=== PATIENT | female | born 1965 | race Caucasian/White ===

== ENCOUNTER 2021-10-21 15:28 | Emergency (ER) | payer OTHER, SELFPAY ==
[2021-10-21 15:41] VITALS: BP 122/80; PULSE 70; RESP 18; TEMP 36.8; O2SAT 98
--- NOTE | 2021-10-21 16:12 | ED.GENADULT ---
HPI - General Adult General Chief complaint: Ear Stated complaint: bilateral ear pain History of Present Illness HPI narrative: Mrs. Elizalde is a pleasant 56 y/o female. PMHx Non-contributory. Presents to [facility] today with acute complaints of bilateral ear pain, RT > burdensome than LT, and ongoing for now a total of 3 weeks. She reports to have been swimming a few weeks back, prior to manifestation onset. Now with worsening pain, and subtherapeutic reliefs to home OTC remedies. No fever. No WHITE, congestion. No rash, lesions. No severe pain, bleeding, or hearing deficits. No falls or direct traumas. Denies additional acute HENT or URI concerns. Related Data Allergies Allergy/AdvReac Type Severity Reaction Status Date / Time No Known Allergies Allergy Mild Verified 10/21/21 15:54 Review of Systems Review of Systems: CONSTITUTIONAL: Denies fever, chills, sweats. EYES: Denies visual changes, redness, discharge. ENT: Denies rhinorrhea, congestion, sore throat + Bilateral otalgia. CARDIOVASCULAR: Denies chest pain, palpitations, edema. RESPIRATORY: Denies dyspnea, wheezing, cough GASTROINTESTINAL: Denies abdominal pain, nausea, vomiting, diarrhea. GENITOURINARY: Denies dysuria, hematuria, abnormal discharge SKIN: Denies rash or itching. MUSCULOSKELETAL: Denies acute back pain, joint pain, or myalgia. NEUROLOGIC: Denies numbness, or focal weakness. PSYCHIATRIC: Denies anxiety or depression. Exam Narrative: GENERAL: This is a well-nourished, well-developed adult, in no apparent distress. HEAD: normocephalic. EYES: PERRL. EARS: External ears normal, RT auditory canal is erythematous, positive tragus maneuver. There is yellow discharge to canal. No FB. No bleeding. TM is erythematous/bulging. No vesicular lesions or signs of Camilo Randall Sx. LT side canal is mildly erythematous, otherwise normal Internal/external PE. No hearing compromise. NOSE: External nose normal. THROAT: Mucous membranes moist, posterior pharynx clear. No exudates. NECK: Neck supple, non-tender without lymphadenopathy, masses or thyromegaly. CARDIOVASCULAR: Regular rate and rhythm. RESPIRATORY: Clear to auscultation. GASTROINTESTINAL: Abdomen soft. SKIN: warm, intact with no suspicious lesions or rash, good texture and turgor. NEURO: Alert, active, and age appropriate. Cranial nerves intact. EXTREMITIES: Negative. Course Course Level of Care: Express Care Visit Vital Signs Vital signs: Vital Signs Temperature 36.8 C 10/21/21 15:41 Pulse Rate 70 10/21/21 15:41 Respiratory Rate 18 10/21/21 15:41 Blood Pressure 122/80 10/21/21 15:41 Pulse Oximetry 98 10/21/21 15:41 Oxygen Delivery Room Air 10/21/21 15:41 Temperature 36.8 C 10/21/21 15:41 Pulse Rate 70 10/21/21 15:41 Respiratory Rate 18 10/21/21 15:41 Blood Pressure 122/80 10/21/21 15:41 Pulse Oximetry 98 10/21/21 15:41 Oxygen Delivery Room Air 10/21/21 15:41 Medical Decision Making MDM Narrative Medical decision making narrative: -Otitis Media RT > burdensome than LT, without hearing deficits or trauma. -OP ATB regimen as directed. -OTC NSAID/Tylenol alteration prn. -Close PCP F/U 1 WK -ER W/Emergent status changes. Pt agrees. Differential Diagnosis Differential Diagnosis: Differential Diagnosis: Consideration of the following conditions may be warranted for the presenting problem, they are not final diagnoses: upper respiratory infection, otitis media, sinusitis, RSV viral infection, bronchitis, pharyngitis, Streptococcal sore throat, COVID-19, and other. Vital Signs Vital Signs: Vital Signs Temperature 36.8 C 10/21/21 15:41 Pulse Rate 70 10/21/21 15:41 Respiratory Rate 18 10/21/21 15:41 Blood Pressure 122/80 10/21/21 15:41 Pulse Oximetry 98 10/21/21 15:41 Oxygen Delivery Room Air 10/21/21 15:41 Temperature 36.8 C 10/21/21 15:41 Pulse Rate 70 10/21/21 15:41 Respiratory Rate
== END 2021-10-21 16:05 | disposition home or self-care (01) ==
PROVIDERS: Emergency Provider Nurse Practitioner Adult Health
DX: H66.91 Otitis media, unspecified, right ear (principal)
CPT/HCPCS: 99213; G0463

== ENCOUNTER 2021-11-01 17:59 | Emergency (ER) | payer OTHER, SELFPAY ==
[2021-11-01 18:06] VITALS: BP 140/83; PULSE 69; RESP 16; TEMP 36.5; O2SAT 100
--- NOTE | 2021-11-01 18:47 | ED.EAR ---
HPI - Ear Problem General Chief complaint: Ear Stated complaint: Bilateral Ear Irritation Time Seen by Provider: 11/01/21 18:47 Source: patient Mode of arrival: ambulatory Limitations: no limitations History of Present Illness HPI Narrative: 56-year-old female presented for complaint of right ear pain and decreased hearing for over 10 days. She was prescribed Ciprodex on 10/21/2021 and took the drops as directed. She completed the course 4 days ago but continues to feel underwater with mild dizziness. She denies tinnitus, nausea, vomiting or fevers. MD Complaint: ear pain Related Data Allergies Allergy/AdvReac Type Severity Reaction Status Date / Time No Known Allergies Allergy Mild Verified 11/01/21 18:18 Review of Systems Review of Systems: CONSTITUTIONAL: Denies malaise, chills, or fever. EYES: Denies visual changes, redness, or discharge. ENT: Denies rhinorrhea, congestion, sinus pain, and sore throat. Reports ear pain CARDIOVASCULAR: Denies chest pain, palpitations, or edema. RESPIRATORY: Denies cough or dyspnea. GASTROINTESTINAL: Denies abdominal pain, nausea, vomiting, diarrhea SKIN: Denies rash or itching. NEUROLOGIC: Denies headache. All systems reviewed & are unremarkable except as noted in HPI and below PMFSH Comments At time of signature, agree with nursing past medical, surgical, social and family history. There is no relevant family history pertinent to the presenting complaint Exam Narrative: GENERAL: Well-appearing EYES: conjunctivae clear ENT: Nares clear. Mucous membranes moist. TMs with yellow debris to bilateral canals, unable to visualize TM, canals normal in color, no tragal tenderness. Oropharynx not erythematous without lesions. NECK: Supple. No lymphadenopathy CHEST: Clear to auscultation, breath sounds equal. HEART: Regular rate and rhythm. No murmur heard. SKIN: Warm, dry, no rash. NEURO: Alert and oriented x3. PSYCH: Normal mood and affect Course Course Emergency Course: Patient is aware of diagnosis, understands and agrees to treatment plan. Anticipatory guidance given. Patient agrees to follow-up as directed and is aware of reasons to seek care at the emergency department. Portions of this record may have been created with voice recognition software Level of Care: Express Care Visit Vital Signs Vital signs: Vital Signs Temperature 97.7 F 11/01/21 18:06 Pulse Rate 69 11/01/21 18:06 Respiratory Rate 16 11/01/21 18:06 Blood Pressure 140/83 11/01/21 18:06 Pulse Oximetry 100 11/01/21 18:06 Oxygen Delivery Room Air 11/01/21 18:06 Temperature 97.7 F 11/01/21 18:06 Pulse Rate 69 11/01/21 18:06 Respiratory Rate 16 11/01/21 18:06 Blood Pressure 140/83 11/01/21 18:06 Pulse Oximetry 100 11/01/21 18:06 Oxygen Delivery Room Air 11/01/21 18:06 Reviewed Procedures Ear Wax Removal Both Ears: Cerumenolytic Used: other (Equal parts hydrogen peroxide and warm water) Results: Re-examined: some cerumen remains Ear Canal Exam: atraumatic Patient Tolerated Procedure: well and no complications Technique: ear canal irrigated and ear canal curetted Additional Comments: no apparent impacted cerumen; Cerumen/debris remains in front of bilateral TMs, she endorses pain with further attempts at removal. Reports significant improvement in the muffled hearing from the right ear. Medical Decision Making MDM Narrative Medical decision making narrative: Advised supportive measures and signs/symptoms to go to the ER. She states she cannot easily follow up with a primary physician, so abx will be sent should she develop worsening pain/fever. Pt is appropriate for outpt treatment and f/u. Differential Diagnosis Differential Diagnosis: Coronavirus, strep pharyngitis, allergic rhinitis, upper respiratory tract infection, sinusitis, rhinosinusitis, nasopharyngitis, viral pharyngitis, otitis media, otitis externa, eustachian
== END 2021-11-01 19:40 | disposition home or self-care (01) ==
PROVIDERS: Emergency Provider Nurse Practitioner Family
DX: H92.01 Otalgia, right ear (principal); H61.23 Impacted cerumen, bilateral
CPT/HCPCS: 69210; 99213; A9270; G0463